=== PATIENT | female | born 1985 | race Asian ===

== ENCOUNTER 2023-10-05 07:26 | Emergency (ER) | payer OTHER, SELFPAY ==
[2023-10-05 07:31] VITALS: BP 129/81
[2023-10-05 07:53] VITALS: BMI 23.4
--- NOTE | 2023-10-05 07:56 | ED.GENMED ---
History of Present Illness
General
Chief Complaint: Abdominal Symptoms
Source: patient
Exam Limitations: none
Time Seen by Provider: 10/05/23 07:34
Nursing documentation reviewed up to this point in time: agreed with
Travel History
Have you had any contact with someone who has COVID-19?: No
Do you have any symptoms of coronavirus? Fever > 100 degrees, chills, cough, shortness of breath, sore throat, loss of taste or smell, muscle aches, or headache?: No
History of Present Illness
History of Present Illness:
38-year-old female presents emergency room complaining of right upper quadrant abdominal pain and back pain since 530 this morning. She ate last night, spinach and chicken. She also has some right shoulder pain as well. No fevers. No prior
abdominal surgeries.
Past History
Past History
ED Past Medical History: None
ED Past Surgical History: None
Social History
Tobacco: Non-smoker
Alcohol: None
Drug: None
Personal:
Living: with family
Review of Systems
Review of Systems
Allergies reviewed?: Yes
All Other Systems: Not applicable
Constitutional: Reports no symptoms
EENT: Reports no symptoms
Respiratory: Reports no symptoms
Cardiac: Reports no symptoms
ABD/GI: Reports abdominal pain and nausea
: Reports no symptoms; Denies dysuria
Musculoskeletal: Reports no symptoms
Skin: Reports no symptoms
Neurological: Reports no symptoms
Endocrine: Reports no symptoms
Hematologic/Lymphatic: Reports no symptoms
Psychiatric: Reports no symptoms
Phy Exam
Physical Exam
Physical Exam:
Physical Exam
General: no apparent distress, not acutely ill
Neck: supple. no meningeal signs. normal posterior pharynx
Heart: s1/s2 regular rate and rhythm, no murmur. equal radial
pulses.
HEENT: Pupils equal round reactive to light, EOMI
Lungs: no acute respiratory distress. clear bilaterally
Abdomen: normal bowel sounds. Right upper quadrant tenderness. No CVAT
Neuro: alert and oriented. no focal neurological deficits
Skin: no rash
Psychiatric: well kept. interactive and cooperative
Extremities: no edema. good distal pulses
Course
Orders/Labs/Results
Orders:
Orders
10/05/23 07:32
EKG [Electrocardiogram (*1)] Urgent
Reason for Study: Abdominal Pain
EKG- Treatment ONCE
10/05/23 07:51
IV Insert/Care/Rem.- Treatment PRN
Ketorolac [Toradol] 15 mg IV NOW STA
Ondansetron Injectable [Zofran] 4 mg IV NOW STA
Test Result ONCE
US Abdomen Complete/Upper Urgent
Comment:
Reason For Exam: ruq/epigastric pain 530 am
10/05/23 07:54
Complete Blood Count/With Diff Urgent
Comprehensive Metabolic Panel Urgent
Lipase Urgent
10/05/23 07:55
HCG, Urine Qualitative Screen Urgent
Date Specimen was Collected: 10/05/23
Time Specimen was Collected: 07:54
Urinalysis Reflex To Culture Urgent
Date Specimen was Collected: 10/05/23
Time Specimen was Collected: 07:54
Urine Microscopic Reflex Cult Urgent
Urine Culture Urgent
CHARLIE Source: U
Specimen Description:
Date Specimen was Collected: 10/05/23
Time Specimen was Collected: 07:54
Abnormal Lab Results
10/05/23 10/05/23
07:54 07:55
RBC 4.15 L 10^6/uL
(4.20-5.40)
Hgb 11.8 L g/dL
(12.0-16.0)
Hct 34.3 L %
(37.0-47.0)
Creatinine 0.5 L mg/dL
(0.6-1.0)
AST 37 H U/L
(14-36)
Leukocyte Esterase Rfl 1+ A
(Negative)
Urine Bacteria (Reflex) Moderate A
(Negative)
10/05/23 07:54
10/05/23 07:54
Vital Signs
Initial and Last Documented VS:
Initial Vital Signs
Temp Pulse Resp BP Pulse Ox
98.5 F 107 18 129/81 100
10/05/23 07:31 10/05/23 07:31 10/05/23 07:31 10/05/23 07:31 10/05/23 07:31
Last Documented Vital Signs
Temp Pulse Resp BP Pulse Ox
98.3 F 86 16 107/74 99
10/05/23 11:25 10/05/23 11:25 10/05/23 11:25 10/05/23 11:25 10/05/23 11:25
MDM/Problems Addressed
Differential Diagnosis Includes:
cholecystitis, pancreatitis
MDM/Problems Addressed:
38 yo female with biliary colic. Improved after Toradol. No signs of cholecystitis or pancreatitis. Stable for discharge and follow-up with general surgery.
*Radiology
Radiology exam reviewed: radiology read reviewed (Ultrasound shows 1.4 cm gallstone, no signs of cholecystitis or biliary obstruction)
*Pulse Oximetry
Patient hypoxic: no
*EKG
Interpreted by ED Provider?: Yes
EKG Intrepretation Date: 10/05/23
EKG Intrepretation Time: 07:39
Interpretation: normal
Comparison EKG: no comparison EKG present
Heart Rate: 89
Rate: normal
Rhythm: sinus
[place]: normal axis
Interval: normal interval
QRS Pattern: normal QRS
Ischemia: no ischemia
*Safety Engineer Pressure Vessels Interpretation
Rate: Safety Engineer Pressure Vessels- N/A
*Critical Care Note
Total Time (30-74mins, 75-104mins- exclusive of procedures): Not Applicable
Data Reviewed
Further Testing Considered But Not Given:
CT scan not indicated
Patient Management
Social determinants of health affecting care: Living situation
Escalation/DeEscalation of care consider admission/obs:
Admit not indicated
ED Attending Note
-
Portions of this chart may have been created with voice recognition software.� Occasional wrong word or��sound alike� substitutions may have occurred due to the inherent limitations of voice recognition software.
Discharge Plan
Departure
Patient Disposition: Home (Routine Discharge)
Date of Disposition: 10/05/23
Time of Disposition: 11:15
Patient with high blood pressure during this ER visit?: No
Condition: Good
Discharge Problem:
Colic, biliary
Instructions: [place] Diet, Gallstones ED, Abdominal Pain
Prescriptions:
No Action
No Current Medications
0
Referrals:
Raghavendra Murray MD [Family Provider] -
Marlo Felix MD [Active] - Call in 1-3 days for appt
Activity Restrictions/Additional Instructions:
Take 600 mg of ibuprofen every 6-8 hours for pain. Return for any concerns or fever.
Interventions
Interventions:
*Risk Screen - Suicide Last Done: 10/05/23 07:46
*General Assessment Last Done: 10/05/23 07:48
*Neglect/Abuse Screening Last Done: 10/05/23 07:46
ED- Fall Risk Assessment Last Done: 10/05/23 07:47
*ED COVID-19 Vaccine History Last Done: 10/05/23 07:53
*Nursing Disposition Last Done: 10/05/23 11:25
KQ-Exmuec-Wwttncvrvc Assessment Last Done: 10/05/23 08:10
Discharge Date and Time
Discharge Date/Time: 10/05/23 11:25
Print Language: SYRIAN
[2023-10-05] MEDS: TORADOL 15 MG IV (08:02)
[2023-10-05] MEDS: ZOFRAN 4 MG IV (08:02)
[2023-10-05 08:11] LABS: % Basophils 0.2 % (0-2); % Eosinophils 3.8 % (0-6); % Immature Granulocytes 0.3 % (0-0.5); % Lymphocytes 26.6 % (20.5-51.1); % Monocytes 7.2 % (1.7-9.3); % Neutrophils 61.9 % (42.2-75.2); Absolute Eosinophils 0.2 10^3/uL (0-0.7); Absolute Lymphocytes 1.5 10^3/uL (1.2-3.4); Absolute Monocytes 0.4 10^3/uL (0.1-0.6); Absolute Neutrophils 3.5 10^3/uL (1.4-6.5); Hematocrit 34.3 % (37.0-47.0); Hemoglobin 11.8 g/dL (12.0-16.0); Mean Corp Hgb Conc. 34.4 g/dL (33.0-37.0); Mean Corpuscular Hgb 28.4 pg (27.0-31.0); Mean Corpuscular Volume 82.7 fL (81.0-99.0); Mean Platelet Volume 8.8 fL (7.4-10.4); Nucleated Red Blood Cells % 0 %; Platelet Count 286 10^3/uL (130-400); Red Blood Cell Count 4.15 10^6/uL (4.20-5.40); Red Cell Dist. Width 13.1 % (11.5-14.5); White Blood Cell Count 5.7 10^3/uL (4.8-10.8)
[2023-10-05 08:13] LABS: Urine Albumin Negative (Neg - Trace); Urine Bilirubin Negative (Negative); Urine Character Clear (Clear); Urine Color Yellow; Urine Glucose Negative (Negative); Urine Ketone Negative (Negative); Urine Leukocyte 1+ (Negative); Urine Nitrite Negative (Negative); Urine Occult Blood Negative (Negative); Urine Urobilinogen Negative (Neg - 1+)
[2023-10-05 08:17] LABS: HCG, Urine Qualitative Screen Negative
[2023-10-05 08:21] LABS: ALT (SGPT) 33 U/L (0-35); AST (SGOT) 37 U/L (14-36); Albumin 4.8 g/dl (3.5-5.0); Alkaline Phosphatase 87 U/L (38-126); Blood Urea Nitrogen 11 mg/dl (7-17); Calcium 9.7 mg/dl (8.4-10.2); Carbon Dioxide 25 mmol/L (22-30); Chloride 104 mmol/L (98-107); Estimated Creatinine Clearance 97 ml/min; Glucose 97 mg/dl (70-99); Lipase 201 U/L (23-300); Potassium 4.4 mmol/L (3.5-5.1); Sodium 135 mmol/L (135-145); Total Bilirubin 0.3 mg/dl (0.2-1.3); Total Protein 7.7 g/dl (6.3-8.2); eGFR > 60.00
[2023-10-05 08:41] LABS: Urine Bacteria Moderate (Negative); Urine Red Blood Cell 0-2 /HPF (0-2); Urine Squamous Cell >30 /LPF (Few)
[2023-10-05 09:17] VITALS: BP 114/65
[2023-10-05 11:25] VITALS: BP 107/74
== END 2023-10-05 11:25 | disposition home or self-care (01) ==
LOC: EMR 07:26
PROVIDERS: EMERGENCY PHYSICIAN Emergency Medicine; FAMILY PHYSICIAN Internal Medicine
DX: K80.50 Calculus of bile duct without cholangitis or cholecystitis without obstruction (principal); R11.0 Nausea; M25.511 Pain in right shoulder; Z91.048 Other nonmedicinal substance allergy status
CPT/HCPCS: 99284; 96374; 96375; 76700; 80053; 81003; 81015; 81025; 83690; 85025; 87086; 93005

== ENCOUNTER 2024-01-14 06:15 | Day surgery (SDC) | payer OTHER, SELFPAY ==
[2024-01-14] VITALS (10 sets, daily range): BP systolic 100–114; BP diastolic 57–77; BMI 21.4
[2024-01-14] MEDS: TYLENOL 1000 MG PO (07:19)
[2024-01-14] MEDS: NORMOSOL-R 1000 IV (07:20)
[2024-01-14] MEDS: EMEND 40 MG PO (07:23)
[2024-01-14] MEDS: DILAUDID 0.25 MG IV ×3 (09:10→10:00)
[2024-01-14] MEDS: ZOFRAN 4 MG IV (09:46)
== END 2024-01-14 11:39 | disposition home or self-care (01) ==
LOC: SDS 06:15
PROVIDERS: ATTENDING PHYSICIAN Surgery
DX: K80.10 Calculus of gallbladder with chronic cholecystitis without obstruction (principal)
CPT/HCPCS: 47562; 88304; A4300